=== PATIENT | female | born 1985 | race American Indian/Alaskan Native ===

== ENCOUNTER 2020-12-05 16:59 | Emergency (ER) | payer MEDICAID ==
[2020-12-05 18:03] VITALS: BP 121/70
--- NOTE | 2020-12-05 18:48 | XRay Report ---
RIGHT FOOT 3 VIEWS INDICATION / CLINICAL INFORMATION: fell off scooter foot injury yesterday COMPARISON: None available. FINDINGS: BONES / JOINT(S): No acute fracture or subluxation. No significant arthritis. SOFT TISSUES: No significant abnormality. ADDITIONAL FINDINGS: None. Signer Name: Jean Paul Mace MD Signed: 12/05/2020 6:43 PM Workstation Name: [id number]
--- NOTE | 2020-12-05 18:49 | XRay Report ---
RIGHT ANKLE 3 VIEWS INDICATION / CLINICAL INFORMATION: fell off scooter ankle injury yesterday COMPARISON: None available. FINDINGS: BONES / JOINT(S): No acute fracture or subluxation. No significant arthritis. SOFT TISSUES: No significant abnormality. ADDITIONAL FINDINGS: None. Signer Name: Jean Paul Mace MD Signed: 12/05/2020 6:44 PM Workstation Name: [id number]
--- NOTE | 2020-12-05 20:15 | Emergency Department Report ---
ED Lower Extremity HPI - General Chief Complaint: Extremity Injury, Lower Stated Complaint: HURT FOOT Time Seen by Provider: 12/05/20 19:55 Source: patient Mode of arrival: Wheelchair Limitations: No Limitations - History of Present Illness Initial Comments: 35-year-old years female presents to the emergency room complaining of right foot pain that she injured yesterday. Patient states she was stepping off a scooter when her foot went to the side and then she started having some mild pain. Patient states when she woke up this morning the pain was worse. She is taken Percocet and Aleve with not much relief. Patient is here to be evaluated. Complaint: foot injury Onset/Timin -: days(s) Injury: Ankle: Right, Foot: Right Type of Injury: inversion - Related Data Previous Rx's Medication Instructions Recorded Last Taken Type Ibuprofen [Motrin 800 MG tab] 800 mg PO Q8HR PRN #30 tablet 12/05/20 Unknown Rx Allergies Allergy/AdvReac Type Severity Reaction Status Date / Time Latex, Natural Rubber Allergy Swelling Verified 12/05/20 18:00 ED Review of Systems ROS: Stated complaint: HURT FOOT Other details as noted in HPI Comment: All other systems reviewed and negative ED Past Medical Hx - Past Medical History Previous Medical History?: No - Surgical History Past Surgical History?: No - Medications Home Medications: Home Medications Medication Instructions Recorded Confirmed Last Taken Type Ibuprofen [Motrin 800 MG tab] 800 mg PO Q8HR PRN #30 tablet 12/05/20 Unknown Rx ED Physical Exam - General Limitations: No Limitations General appearance: alert - Head Head exam: Present: atraumatic - Eye Eye exam: Present: normal appearance - ENT ENT exam: Present: normal external ear exam - Neck Neck exam: Present: normal inspection, full ROM - Respiratory Respiratory exam: Absent: accessory muscle use - Back Exam Back exam: Present: full ROM - Neurological Exam Neurological exam: Present: alert, oriented X3 - Psychiatric Psychiatric exam: Present: normal affect, normal mood - Skin Skin exam: Present: warm, dry, intact, normal color. Absent: rash ED Course Vital Signs 12/05/20 18:03 Temperature 98.3 F Pulse Rate 83 Respiratory 18 Rate Blood Pressure 121/70 [Left] O2 Sat by Pulse 100 Oximetry ED Lower Extremity MDM - Radiology Data Radiology results: report reviewed [facility] [address] [place] [address] XRay Report Signed Patient: BARBER DONNELLY MR#: [id number] : 1985 Acct:[id number] Age/Sex: 35 / F ADM Date: 12/05/20 Loc: ED Attending Dr: Ordering Physician: TIMOTEO HAGER MD Date of Service: 12/05/20 Procedure(s): XR foot 3+V RT Accession Number(s): [id number] cc: TIMOTEO HAGER MD Fluoro Time In Minutes: RIGHT FOOT 3 VIEWS INDICATION / CLINICAL INFORMATION: fell off scooter foot injury yesterday COMPARISON: None available. FINDINGS: BONES / JOINT(S): No acute fracture or subluxation. No significant arthritis. SOFT TISSUES: No significant abnormality. ADDITIONAL FINDINGS: None. Signer Name: Jean Paul Mace MD Signed: 12/05/2020 6:43 PM Workstation Name: [id number] Transcribed By: ES Dictated By: Jean Paul Mace MD Electronically Authenticated By: Jean Paul Mace MD Signed Date/Time: 12/05/201842 DD/ 41 TD/TT: [facility] [address] [place] [address] XRay Report Signed Patient: BARBER DONNELLY MR#: [id number] : 1985 Acct:[id number] Age/Sex: 35 / F ADM Date: 12/05/20 Loc: ED Attending Dr: Ordering Physician: TIMOTEO HAGER MD Date of Service: 12/05/20 Procedure(s): XR ankle 3+V RT Accession Number(s): [id number] cc: TIMOTEO HAGER MD Fluoro Time In Minutes: RIGHT ANKLE 3 VIEWS INDICATION / CLINICAL INFORMATION: fell off scooter ankle injury yesterday COMPARISON: None available. FINDINGS: BONES / JOINT(S): No acute fracture or subluxation. No significant arthritis. SOFT TISSUES: No significant abnormality. ADDITIONAL FINDINGS: None. Signer Name: Jean Paul Mace MD Signed: 12/05/2020 6:44 PM Workstation Name: [id number] Transcribed By: ES Dictated By: Jean Paul Mace MD Electronically Authenticated By: Jean Paul Mace MD Signed Date/Time: 12/05/201843 DD/ 42 TD/TT: Print Cancel Print Cancel - Medical Decision Making 35-year-old years female presents to the emergency room complaining of right foot pain that she injured yesterday. Patient states she was stepping off a scooter when her foot went to the side and then she started having some mild pain. Patient states when she woke up this morning the pain was worse. She is taken Percocet and Aleve with not much relief. Patient is here to be evaluated. Right foot pain with negative x-ray of ankle and foot. Patient was placed on crutches and ibuprofen. Discussed with patient and to put ice on elevate and wear Mauro wrap bandage to her foot. Patient verbalized understanding. Referral to orthopedics has been placed. Critical care attestation.: If time is entered above; I have spent that time in minutes in the direct care of this critically ill patient, excluding procedure time. ED Disposition Clinical Impression: Injury of foot, right Qualifiers: Encounter type: initial encounter Qualified Code(s): S99.921A - Unspecified injury of right foot, initial encounter Disposition: DC-01 TO HOME OR SELFCARE Is pt being admited?: No Does the pt Need Aspirin: No Condition: Stable Additional Instructions: X-rays are negative for any acute fractures or dislocations. Recommend taking ibuprofen elevate ice and wrapped with Mauro bandage. Follow-up with an orthopedic if you have any further concerns. Prescriptions: Ibuprofen [Motrin 800 MG tab] 800 mg PO Q8HR PRN #30 tablet PRN Reason: Pain , Severe (7-10) Referrals: ADRIANA ALFONSO MD [Staff Physician] - 3-5 Days Forms: Work/School Release Form(ED)
== END 2020-12-05 20:25 | disposition home or self-care (01) ==
LOC: ED 16:59
DX: S99.921A Unspecified injury of right foot, initial encounter (principal); Z79.899 Other long term (current) drug therapy; Z91.040 Latex allergy status; Z88.8 Allergy status to other drugs, medicaments and biological substances; X58.XXXA Exposure to other specified factors, initial encounter; Y93.89 Activity, other specified; Y92.89 Other specified places as the place of occurrence of the external cause; Y99.8 Other external cause status